=== PATIENT | male | born 1970 | race Caucasian/White ===

== ENCOUNTER 2024-09-16 11:56 | Observation (INO) | payer BC ==
--- NOTE | 2024-09-16 12:15 | ED ---
General Adult HPI - General Chief complaint: Abdominal Pain Stated complaint: Abd pain Time Seen by Provider: 09/16/24 12:04 Source: patient, RN notes reviewed Mode of arrival: ambulatory Limitations: no limitations - History of Present Illness Initial comments: This is a 53-year-old male with a history of type 2 diabetes and hypertension presenting to the [facility] chief complaint of sharp and stabbing mid-line abdominal pain that began this morning starting from his suprapubic region and up to his xiphoid. Pain states the pain is exacerbated on movement and on inspiration. He denies radiation of pain into the back, chest pain, shortness of breath, difficulty breathing. He denies nausea, vomiting, fevers, chills, diarrhea, constipation. Previous surgical abdominal history of of inguinal hernia repair. Patient states that he last had something to eat at about 1030 which was a piece of toast. States he has had small sips of water through the day. - Related Data Home Medications Medication Instructions Recorded Confirmed Aspirin EC [Ecotrin Low Dose] 81 mg PO DAILY 09/16/24 09/16/24 Dapagliflozin Propanediol [Farxiga] 10 mg PO DAILY 09/16/24 09/16/24 Pravastatin Sodium [Pravachol] 20 mg PO HS 09/16/24 09/16/24 Semaglutide [Ozempic] 1 mg SQ COVARRUBIAS 09/16/24 09/16/24 glipiZIDE [Glucotrol] 5 mg PO BID 09/16/24 09/16/24 lisinopriL [Prinivil] 20 mg PO DAILY 09/16/24 09/16/24 metFORMIN HCL 1,000 mg PO BID 09/16/24 09/16/24 sitaGLIPtin [Januvia] 100 mg PO DAILY 09/16/24 09/16/24 Allergies Allergy/AdvReac Type Severity Reaction Status Date / Time codeine Allergy Itching Verified 09/16/24 13:57 oxycodone [From Percocet] AdvReac Jittery Verified 09/16/24 13:57 Review of Systems ROS Statement: Those systems with pertinent positive or pertinent negative responses have been documented in the HPI. ROS Other: All systems not noted in ROS Statement are negative. Past Medical History Past Medical History: Diabetes Mellitus, Hypertension Past Surgical History: Orthopedic Surgery Past Psychological History: No Psychological Hx Reported Smoking Status: Never smoker Past Alcohol Use History: Occasional Past Drug Use History: None Reported General Exam Limitations: no limitations ENT exam: Present: normal exam, mucous membranes moist Neck exam: Present: normal inspection. Absent: tenderness, meningismus, lympha denopathy Respiratory exam: Present: normal lung sounds bilaterally. Absent: respiratory distress, wheezes, rales, rhonchi, stridor Cardiovascular Exam: Present: regular rate, normal rhythm, normal heart sounds. Absent: systolic murmur, diastolic murmur, rubs, gallop, clicks GI/Abdominal exam: Present: soft, tenderness (RLQ to palpation, + rovsings sign), normal bowel sounds. Absent: distended, guarding, rebound, rigid Back exam: Present: normal inspection Course Vital Signs 09/16/24 09/16/24 11:58 14:00 Temperature 98.1 F 99.1 F Pulse Rate 98 94 Respiratory 16 18 Rate Blood Pressure 132/88 137/88 O2 Sat by Pulse 99 97 Oximetry Medical Decision Making - Medical Decision Making Was pt. sent in by a medical professional or institution (, PA, GREY PERCHER, urgent care, hospital, or detention...) When possible be specific @ -No Did you speak to anyone other than the patient for history (EMS, parent, family, police, friend...)? What history was obtained from this source @ -No Did you review nursing and triage notes (agree or disagree)? Why? @ -I reviewed and agree with nursing and triage notes Were old charts reviewed (outside hosp., previous admission, EMS record, old EKG, old radiological studies, urgent care reports/EKG's, detention records)? Report findings @ -No old charts were reviewed Differential Diagnosis (chest pain, altered mental status, abdominal pain women, abdominal pain men, vaginal bleeding, weakness, fever, dyspnea, syncope, headache, dizziness, GI bleed, back pain, seizure, CVA, palpatations, mental health, musculoskeletal)? @ -Differential Abdominal Pain Men: Appendicitis, cholecystitis, diverticulosis, ischemic bowel, pancreatitis, hepatitis, UTI, gastroenteritis, AAA, incarcerated hernia, bowel obstruction, constipation, inflammatory bowel, hepatitis, peptic ulcer disease, splenic infarction, perforated viscus, testicular torsion, this is not meant to be an all-inclusive list EKG interpreted by me (3pts min.). @ -Completed at 1312 sinus tachycardia with a ventricular rate of 103, AR interval 157, QRS 93, QTc 362. X-rays interpreted by me (1pt min.). @ -None done CT interpreted by me (1pt min.). @ -CT of the abdomen pelvis with IV contrast remarkable for acute uncomplicated appendicitis U/S interpreted by me (1pt. min.). @ -None done What testing was considered but not performed or refused? (CT, X-rays, U/S, labs)? Why? @ -None What meds were considered but not given or refused? Why? @ -None Did you discuss the management of the patient with other professionals (professionals i.e. DrSay, PA, GREY PERCHER, lab, RT, psych nurse, clinical social work aide, camp nurse, teacher, promotions officer, child welfare caseworker)? Give summary @ -i spoke with commissioner of relocation services general surgeon, Dr. Street, who has accepted the patient for admission for acute appendicitis. Was smoking cessation discussed for >3mins.? @ -No Was critical care preformed (if so, how long)? @ -No Were there social determinants of health that impacted care today? How? (Homelessness, low income, unemployed, alcoholism, drug addiction, transportation, low edu. Level, literacy, decrease access to med. care, [facility], rehab)? @ -No Was there de-escalation of care discussed even if they declined (Discuss DNR or withdrawal of care, Hospice)? DNR status @ -No What co-morbidities impacted this encounter? (DM, HTN, Smoking, COPD, CAD, Cancer, CVA, ARF, Chemo, Hep., AIDS, mental health diagnosis, sleep apnea, morbid obesity)? @ -None Was patient admitted / discharged? Hospital course, mention meds given and route, prescriptions, significant lab abnormalities, going to OR and other pertinent info. @ - admitted. 53-year-old male with abdominal pain. On examination patient did have tenderness to the right lower quadrant and of the mid abdomen. He is provided with pain medications pending laboratory results and CT imaging. Patient's labs remarkable for hyperglycemia with a glucose of 214 and mildly elevated lactic acid at 2.3 and is provided with 1L fluid bolus. no leukocytosis, and patient is afebrile. Radiology confirms a acute uncomplicated appendicitis. Consult to general surgeon who is excepted patient for surgery. Case discussed with Dr. Pritchett. admitted to Dr. Street. Undiagnosed new problem with uncertain prognosis? @ -No Drug Therapy requiring intensive monitoring for toxicity (Heparin, Nitro, Insulin, Cardizem)? @ -No Were any procedures done? @ -No Diagnosis/symptom? @ -appendicitis Acute, or Chronic, or Acute on Chronic? @ -acute Uncomplicated (without systemic symptoms) or Complicated (systemic symptoms)? @ -complicated Side effects of treatment? @ -No Exacerbation, Progression, or Severe Exacerbation? @ -No Poses a threat to life or bodily function? How? (Chest pain, [place], PR, pneumonia, PE, COPD, DKA, ARF, appy, cholecystitis, CVA, Diverticulitis, Homicidal, Suicidal, threat to staff... and all critical care pts) @ -No - Lab Data Result diagrams: 09/16/24 12:50 09/16/24 12:49 Lab Results 09/16/24 09/16/24 09/16/24 Range/Units 12:49 12:49 12:50 WBC 10.4 (3.8-10.6) k/uL RBC 5.93 H (4.30-5.90) m/uL Hgb 17.2 (13.0-17.5) gm/dL Hct 50.6 (39.0-53.0) % MCV 85.4 (80.0-100.0) fL MCH 28.9 (25.0-35.0) pg MCHC 33.9 (31.0-37.0) g/dL RDW 12.7 (11.5-15.5) % Plt Count 171 (150-450) k/uL MPV 7.9 Neutrophils % 85 % Lymphocytes % 9 % Monocytes % 5 % Eosinophils % 1 % Basophils % 0 % Neutrophils # 8.8 H (1.3-7.7) k/uL Lymphocytes # 0.9 L (1.0-4.8) k/uL Monocytes # 0.5 (0-1.0) k/uL Eosinophils # 0.1 (0-0.7) k/uL Basophils # 0.0 (0-0.2) k/uL PT (10.0-12.5) sec INR (<1.2) APTT (22.0-30.0) sec Sodium 133 L (137-145) mmol/L Potassium 4.3 (3.5-5.1) mmol/L Chloride 101 (98-107) mmol/L Carbon Dioxide 21 L (22-30) mmol/L Anion Gap 11 mmol/L BUN 15 (9-20) mg/dL Creatinine 0.72 (0.66-1.25) mg/dL Est GFR (CKD-EPI)AfAm >90 (>60 ml/min/1.73 sqM) Est GFR (CKD-EPI)NonAf >90 (>60 ml/min/1.73 sqM) Glucose 214 H (74-99) mg/dL Plasma Lactic Acid Waylon 2.3 H* (0.7-2.0) mmol/L Calcium 10.3 H (8.4-10.2) mg/dL Total Bilirubin 1.6 H (0.2-1.3) mg/dL AST 25 (17-59) U/L ALT 34 (4-49) U/L Alkaline Phosphatase 122 (38-126) U/L Troponin I (0.000-0.034) ng/mL Total Protein 7.7 (6.3-8.2) g/dL Albumin 5.1 H (3.5-5.0) g/dL Amylase 56 (30-110) U/L Lipase 147 (23-300) U/L 09/16/24 09/16/24 Range/Units 12:50 12:50 WBC (3.8-10.6) k/uL RBC (4.30-5.90) m/uL Hgb (13.0-17.5) gm/dL Hct (39.0-53.0) % MCV (80.0-100.0) fL MCH (25.0-35.0) pg MCHC (31.0-37.0) g/dL RDW (11.5-15.5) % Plt Count (150-450) k/uL MPV Neutrophils % % Lymphocytes % % Monocytes % % Eosinophils % % Basophils % % Neutrophils # (1.3-7.7) k/uL Lymphocytes # (1.0-4.8) k/uL Monocytes # (0-1.0) k/uL Eosinophils # (0-0.7) k/uL Basophils # (0-0.2) k/uL PT 10.7 (10.0-12.5) sec INR 1.0 (<1.2) APTT 25.1 (22.0-30.0) sec Sodium (137-145) mmol/L Potassium (3.5-5.1) mmol/L Chloride (98-107) mmol/L Carbon Dioxide (22-30) mmol/L Anion Gap mmol/L BUN (9-20) mg/dL Creatinine (0.66-1.25) mg/dL Est GFR (CKD-EPI)AfAm (>60 ml/min/1.73 sqM) Est GFR (CKD-EPI)NonAf (>60 ml/min/1.73 sqM) Glucose (74-99) mg/dL Plasma Lactic Acid Waylon (0.7-2.0) mmol/L Calcium (8.4-10.2) mg/dL Total Bilirubin (0.2-1.3) mg/dL AST (17-59) U/L ALT (4-49) U/L Alkaline Phosphatase (38-126) U/L Troponin I <0.012 (0.000-0.034) ng/mL Total Protein (6.3-8.2) g/dL Albumin (3.5-5.0) g/dL Amylase (30-110) U/L Lipase (23-300) U/L Disposition Clinical Impression: Appendicitis Disposition: ADMITTED IP TO THIS [facility] Condition: Serious Decision to Admit Reason: Admit from EC Decision Date: 09/16/24 Decision Time: 14:07
[2024-09-16 12:57] LABS: Basophils % (A) 0 %; Eosinophils # (A) 0.1 k/uL (0-0.7); Eosinophils % (A) 1 %; HCT 50.6 % (39.0-53.0); HGB 17.2 gm/dL (13.0-17.5); Lymphocytes # (A) 0.9 k/uL (1.0-4.8); Lymphocytes % (A) 9 %; MCH 28.9 pg (25.0-35.0); MCHC 33.9 g/dL (31.0-37.0); MCV 85.4 fL (80.0-100.0); Mean Platelet Volume 7.9; Monocytes # (A) 0.5 k/uL (0-1.0); Monocytes % (A) 5 %; Neutrophils # (A) 8.8 k/uL (1.3-7.7); Neutrophils % (A) 85 %; Platelet Count 171 k/uL (150-450); RBC 5.93 m/uL (4.30-5.90); RDW 12.7 % (11.5-15.5); WBC 10.4 k/uL (3.8-10.6)
[2024-09-16] MEDS: HYDROmorphone 0.5 MG/0.5 ML SYRINGE IVP STA (13:01)
[2024-09-16 13:05] LABS: Partial Thromboplastin Time 25.1 sec (22.0-30.0); Prothrombin Time 10.7 sec (10.0-12.5)
[2024-09-16 13:14] LABS: ALT 34 U/L (4-49); AST 25 U/L (17-59); African American GFR (CKD) >90 (>60 ml/min/1.73 sqM); Albumin 5.1 g/dL (3.5-5.0); Alkaline Phosphatase 122 U/L (38-126); Amylase 56 U/L (30-110); Anion Gap 11 mmol/L; Blood Urea Nitrogen 15 mg/dL (9-20); Calcium 10.3 mg/dL (8.4-10.2); Carbon Dioxide 21 mmol/L (22-30); Chloride 101 mmol/L (98-107); Glucose 214 mg/dL (74-99); Lipase 147 U/L (23-300); Non-African American GFR(CKD) >90 (>60 ml/min/1.73 sqM); Potassium 4.3 mmol/L (3.5-5.1); Sodium 133 mmol/L (137-145); Total Bilirubin 1.6 mg/dL (0.2-1.3); Total Protein 7.7 g/dL (6.3-8.2)
--- NOTE | 2024-09-16 13:46 | CT ---
EXAMINATION TYPE: CT abdomen pelvis w con CT DLP: 1201.6 mGycm, Automated exposure control for dose reduction was used. DATE OF EXAM: 09/16/2024 1:36 PM COMPARISON: Non- CLINICAL INDICATION:Male, 53 years old with history of mid stabbing ab pain; ABD PAIN TECHNIQUE: Standard CT of the abdomen and pelvis following the administration of 100 cc of Isovue 3 00 IV contrast material. Coronal and sagittal reformats were performed. FINDINGS: LOWER CHEST: No significant findings ABDOMEN LIVER: Posterior right hepatic lobe subcentimeter hypodensity which is too small to accurately charac terized. GALLBLADDER AND BILE DUCTS: Unremarkable. PANCREAS: Unremarkable. SPLEEN: Unremarkable. ADRENAL GLANDS: Unremarkable. KIDNEYS AND URETERS: No evidence of hydronephrosis or renal calculus. The kidneys enhance symmetrical ly. Bilateral renal sinus cysts with left greater than right. Contrast is demonstrated within both co llecting systems on the delayed phase. PELVIS BLADDER: Unremarkable REPRODUCTIVE: Unremarkable. ABDOMEN & PELVIS STOMACH AND BOWEL: Stomach and duodenum are unremarkable. Dilated appendix measuring up to 1.1 cm wit h surrounding fat stranding and hyperdensity within its base. No surrounding fluid collections or gas . No evidence of bowel obstruction. PERITONEUM: No evidence of pneumoperitoneum or free fluid. VASCULATURE: No evidence of aortic aneurysm. MUSCULOSKELETAL: No acute osseous abnormalities. Sclerotic focus within the left acetabulum likely re presenting a benign bone island. Degenerative disc disease most pronounced at L5-S1 with disc space n arrowing, vacuum disc disease, endplate sclerosis, and osteophytosis. LYMPH NODES: No gross evidence for lymphadenopathy. SOFT TISSUE/ABDOMINAL WALL: Small fat filled right inguinal hernia. IMPRESSION: Acute uncomplicated appendicitis. Findings called to and discussed with PIPPA Umana at 1:43 PM on 09/16/2024. [facility], , 09/16/2024 1:43 PM
[2024-09-16] MEDS ORDERED: NALOXONE 0.4 MG/ML 1 ML VIAL IV PRN (14:06)
[2024-09-16 15:02] LABS: Glucose,Whole Blood 181 mg/dL (70-110)
--- NOTE | 2024-09-16 15:11 | P.GSHP ---
History of Present Illness H&P Date: 09/16/24 CHIEF COMPLAINT: Abdominal pain HISTORY OF PRESENT ILLNESS: This is a 53-year-old male with a known history of diabetes and hypertension. He presented to the hospital with complaints of abdominal pain. Patient reports that he has been having abdominal bloating. He is tender in the right lower quadrant as well as mid abdomen and into the upper abdomen. Patient reports that his symptoms started this morning. Pain is worse with with movement. Denies any nausea vomiting. Denies any fever chills or sweats. Prior abdominal surgical history includes inguinal hernia repair. Patient had a CT scan abdomen pelvis reporting findings of acute appendicitis. PAST MEDICAL HISTORY: See below PAST SURGICAL HISTORY: See below MEDICATIONS: See below ALLERGIES: See below SOCIAL HISTORY: No illicit drug use. REVIEW OF SYSTEMS: CONSTITUTIONAL: Denies fever or chills. HEENT: Denies blurred vision, vision changes, or eye pain. Denies hemoptysis CARDIOVASCULAR: Denies chest pain or pressure. RESPIRATORY: No shortness of breath. GASTROINTESTINAL: See HPI for pertinent findings HEMATOLOGIC: Denies bleeding disorders. GENITOURINARY: Denies any blood in urine or increased urinary frequency. SKIN: Denies pruitis. Denies rash. PHYSICAL EXAM: VITAL SIGNS: Reviewed GENERAL: Well-developed in no acute distress. HEENT: No sclera icterus. Extraocular movements grossly intact. Moist buccal mucosa. Head is atraumatic, normocephalic. No nasal drainage. ABDOMEN: Soft. Nondistended. Tenderness palpation to the right lower quadrant, mid abdomen and upper abdomen. More tender in the right lower quadrant. NEUROLOGIC: Alert and oriented. Cranial nerves II through XII grossly intact. LABORATORY DATA: WBC 10.4 Hgb 17.2 platelets 171 INR 1.0 Sodium 133 potassium is 4.3 creatinine 0.72 glucose 181 lactic acid 2.3 Total bili 1.6 LFTs normal lipase 147 IMAGING: CT scan abdomen pelvis reports acute uncomplicated appendicitis ASSESSMENT: 1. Acute appendicitis PLAN: -Patient scheduled for Laparoscopic Appendectomy today with Dr. Street -Keep patient n.p.o. -Start Rocephin and Flagyl -Continue IV fluids -Continue pain management Physician Steam Table Worker note has been reviewed by physician. Signing provider agrees with the documented findings, assessment, and plan of care. Past Medical History Past Medical History: Diabetes Mellitus, Hypertension Past Surgical History: Orthopedic Surgery Past Psychological History: No Psychological Hx Reported Smoking Status: Never smoker Past Alcohol Use History: Occasional Past Drug Use History: None Reported Medications and Allergies Home Medications Medication Instructions Recorded Confirmed Type Aspirin EC [Ecotrin Low Dose] 81 mg PO DAILY 09/16/24 09/16/24 History Dapagliflozin Propanediol [Farxiga] 10 mg PO DAILY 09/16/24 09/16/24 History Pravastatin Sodium [Pravachol] 20 mg PO HS 09/16/24 09/16/24 History Semaglutide [Ozempic] 1 mg SQ COVARRUBIAS 09/16/24 09/16/24 History glipiZIDE [Glucotrol] 5 mg PO BID 09/16/24 09/16/24 History lisinopriL [Prinivil] 20 mg PO DAILY 09/16/24 09/16/24 History metFORMIN HCL 1,000 mg PO BID 09/16/24 09/16/24 History sitaGLIPtin [Januvia] 100 mg PO DAILY 09/16/24 09/16/24 History Allergies Allergy/AdvReac Type Severity Reaction Status Date / Time oxycodone [From Percocet] AdvReac Jittery Verified 09/16/24 15:49 prednisone AdvReac Unknown Verified 09/16/24 16:12 Surgical - Exam Osteopathic Statement: *. No significant issues noted on an osteopathic structural exam other than those noted in the History and Physical/Consult. Vital Signs Temp Pulse Resp BP Pulse Ox 98.1 F 98 16 132/88 99 09/16/24 11:58 09/16/24 11:58 09/16/24 11:58 09/16/24 11:58 09/16/24 11:58 Results - Labs 09/16/24 12:50 09/16/24 12:49 Abnormal Lab Results - Last 24 Hours (Table) 09/16/24 09/16/24 09/16/24 Range/Units 12:49 12:49 12:50 RBC 5.93 H (4.30-5.90) m/uL Neutrophils # 8.8 H (1.3-7.7) k/uL Lymphocytes # 0.9 L (1.0-4.8) k/uL Sodium 133 L (137-145) mmol/L Carbon Dioxide 21 L (22-30) mmol/L Glucose 214 H (74-99) mg/dL Plasma Lactic Acid Waylon 2.3 H* (0.7-2.0) mmol/L Calcium 10.3 H (8.4-10.2) mg/dL Total Bilirubin 1.6 H (0.2-1.3) mg/dL Albumin 5.1 H (3.5-5.0) g/dL Diabetes panel 09/16/24 Range/Units 12:49 Sodium 133 L (137-145) mmol/L Potassium 4.3 (3.5-5.1) mmol/L Chloride 101 (98-107) mmol/L Carbon Dioxide 21 L (22-30) mmol/L BUN 15 (9-20) mg/dL Creatinine 0.72 (0.66-1.25) mg/dL Glucose 214 H (74-99) mg/dL Calcium 10.3 H (8.4-10.2) mg/dL AST 25 (17-59) U/L ALT 34 (4-49) U/L Alkaline Phosphatase 122 (38-126) U/L Total Protein 7.7 (6.3-8.2) g/dL Albumin 5.1 H (3.5-5.0) g/dL Calcium panel 09/16/24 Range/Units 12:49 Calcium 10.3 H (8.4-10.2) mg/dL Albumin 5.1 H (3.5-5.0) g/dL Pituitary panel 09/16/24 Range/Units 12:49 Sodium 133 L (137-145) mmol/L Potassium 4.3 (3.5-5.1) mmol/L Chloride 101 (98-107) mmol/L Carbon Dioxide 21 L (22-30) mmol/L BUN 15 (9-20) mg/dL Creatinine 0.72 (0.66-1.25) mg/dL Glucose 214 H (74-99) mg/dL Calcium 10.3 H (8.4-10.2) mg/dL Adrenal panel 09/16/24 Range/Units 12:49 Sodium 133 L (137-145) mmol/L Potassium 4.3 (3.5-5.1) mmol/L Chloride 101 (98-107) mmol/L Carbon Dioxide 21 L (22-30) mmol/L BUN 15 (9-20) mg/dL Creatinine 0.72 (0.66-1.25) mg/dL Glucose 214 H (74-99) mg/dL Calcium 10.3 H (8.4-10.2) mg/dL Total Bilirubin 1.6 H (0.2-1.3) mg/dL AST 25 (17-59) U/L ALT 34 (4-49) U/L Alkaline Phosphatase 122 (38-126) U/L Total Protein 7.7 (6.3-8.2) g/dL Albumin 5.1 H (3.5-5.0) g/dL Assessment and Plan Assessment: 53-year-old male with appendicitis Continue antibiotics OR today Possible discharge tomorrow Time with Patient: Greater than 30
[2024-09-16 16:04] LABS: Glucose,Whole Blood 166 mg/dL (70-110)
[2024-09-16] MEDS: ONDANSETRON 4 MG/2 ML VIAL IVP PRN (16:05)
[2024-09-16] MEDS: FAMOTIDINE 20 MG/2 ML VIAL IV STA (16:06)
[2024-09-16] MEDS: DEXAMETHASONE SOD PHOSPHATE 4 MG/ML 1 ML VIAL IVP PRN (16:10)
[2024-09-16] MEDS: IV FLUID CONTINUATION 1,000 ML IV ONE (16:16)
[2024-09-16] MEDS ORDERED: MIDAZOLAM 2 MG/2 ML VIAL ONE (16:49)
[2024-09-16] MEDS ORDERED: fentaNYL (PF) 50 MCG/ML 2 ML AMP ONE (16:49)
[2024-09-16] MEDS ORDERED: SUCCINYLCHOLINE CHLORIDE 200 MG/10 ML VIAL IV ONE (16:49)
[2024-09-16] MEDS ORDERED: HEPARIN SODIUM,PORCINE 5,000 UNIT/ML 1 ML VIAL ONE (16:49)
[2024-09-16] MEDS ORDERED: GLYCOPYRROLATE 0.2 MG/ML 2 ML VIAL ONE (16:49)
[2024-09-16] MEDS ORDERED: ROCURONIUM 10 MG/ML (5 ML VIAL) IV ONE (16:49)
[2024-09-16] MEDS ORDERED: HYDROmorphone (PF) 1 MG/ML ONE (16:49)
[2024-09-16] MEDS ORDERED: LIDOCAINE 1% INJ 10MG/ML (20 ML MDV) ONE (16:49)
[2024-09-16] MEDS ORDERED: PROPOFOL 10 MG/ML 20 ML VIAL IV ONE (16:49)
[2024-09-16] MEDS ORDERED: NEOSTIGMINE 1 MG/ML 10 ML VIAL ONE (16:49)
[2024-09-16] MEDS: metroNIDAZOLE-NS PMX 500 MG in SALINE 1 100ML.BAG IVPB SCH (17:15)
[2024-09-16] MEDS: LIDOCAINE 1%-EPI 1:100,000 20 ML VIAL SQ ONE ×2 (17:17→18:20)
[2024-09-16] MEDS: LACTATED RINGERS 1,000 ML IV ONE ×2 (17:42→17:44)
[2024-09-16 18:42] LABS: Glucose,Whole Blood 213 mg/dL (70-110)
[2024-09-16] MEDS: INSULIN ASPART (NovoLOG) 100 UNIT/ML VIAL SQ ONE (18:54)
--- NOTE | 2024-09-16 19:21 | P.OP ---
Date of Procedure: 09/16/24 Preoperative Diagnosis: appendicitis Postoperative Diagnosis: appendicitis Procedure(s) Performed: laparoscopic appendectomy Anesthesia: STEFFANY Surgeon: Jw Street Pathology: other (Appendix) Condition: stable Disposition: PACU Indications for Procedure: appendicitis Operative Findings: inflamed appendix curled in inflamed fat Description of Procedure: patient is brought to the operating suite where he was cleaned and draped in sterile fashion and a timeout was performed. Everyone agreed with the information recited.a #15 blade was then used to make an incision in the left upper quadrant and a 5 mm Visiport was used to gain access. [address] and the abdomen 1 in the periumbilical area and one in the infraumbilical area. Next the patient was placed in Trendelenburg in right side up. We then move the small bowel out of the way exposing the cecum and inflamed appendix. Next the appendix was picked up and was dissected freely from the retroperitoneum. This was very difficult as the appendix was plastered to the wall as well. Once we were able to free it up we dissected down to the base and using a Endo JACINTO 60 propyl staple load to resect the appendix. The base was inspected and hemostatic, was performed. Just for good measure the vistaseal was then used over the staple line. The abdomen was irrigated. Appendix was then removed out of the patient's abdomen in an Endo Catch bag. The periumbilical skin was closed using 0 Vicryl suture in a [id number] fashion. The surgical incisions were closed using 4-0 Vicryl suture in an interrupted fashion. The patient was then transported to PACU in stable condition.
[2024-09-16] MEDS: SODIUM CHLORIDE 0.9% 1,000 ML IV SCH (19:34)
[2024-09-16] MEDS: METOPROLOL TARTRATE 5 MG/5 ML VIAL IVP STA (19:34)
[2024-09-16 20:51] LABS: Glucose,Whole Blood 196 mg/dL (70-110)
[2024-09-16] MEDS: SODIUM CHLORIDE 0.9% 1,000 ML IV STA (21:18)
[2024-09-16] MEDS: DAPAGLIFLOZIN PROPANEDIOL 10 MG TABLET PO SCH (21:32)
[2024-09-16] MEDS: HYDROmorphone 0.5 MG/0.5 ML SYRINGE IVP PRN (21:32)
[2024-09-16] MEDS: lisinopriL 20 MG TAB PO SCH (21:32)
[2024-09-17 06:35] LABS: Glucose,Whole Blood 122 mg/dL (70-110)
[2024-09-17 07:16] LABS: Basophils % (A) 0 %; Eosinophils % (A) 0 %; HCT 45.7 % (39.0-53.0); HGB 15.3 gm/dL (13.0-17.5); Lymphocytes # (A) 1.2 k/uL (1.0-4.8); Lymphocytes % (A) 12 %; MCHC 33.5 g/dL (31.0-37.0); MCV 86.6 fL (80.0-100.0); Mean Platelet Volume 7.8; Monocytes # (A) 0.7 k/uL (0-1.0); Monocytes % (A) 7 %; Neutrophils # (A) 7.9 k/uL (1.3-7.7); Neutrophils % (A) 80 %; Platelet Count 173 k/uL (150-450); RBC 5.28 m/uL (4.30-5.90); WBC 9.9 k/uL (3.8-10.6)
[2024-09-17 07:28] LABS: ALT 24 U/L (4-49); AST 19 U/L (17-59); African American GFR (CKD) >90 (>60 ml/min/1.73 sqM); Alkaline Phosphatase 80 U/L (38-126); Anion Gap 8 mmol/L; Blood Urea Nitrogen 13 mg/dL (9-20); Calcium 9.2 mg/dL (8.4-10.2); Carbon Dioxide 27 mmol/L (22-30); Chloride 101 mmol/L (98-107); Glucose 118 mg/dL (74-99); Non-African American GFR(CKD) >90 (>60 ml/min/1.73 sqM); Potassium 4.3 mmol/L (3.5-5.1); Sodium 136 mmol/L (137-145); Total Bilirubin 1.5 mg/dL (0.2-1.3); Total Protein 6.1 g/dL (6.3-8.2)
[2024-09-17 08:44] VITALS: BP 123/79; PULSE 96; RESP 17; TEMP 98.1
[2024-09-17] MEDS ORDERED: ACETAMINOPHEN TAB 325 MG TAB PO PRN (09:33)
[2024-09-17] MEDS: HYDROcodone/APAP 5-325MG 1 EACH TAB PO PRN (09:59)
--- NOTE | 2024-09-17 13:35 | P.DS ---
Providers Date of admission: 09/16/24 14:04 Expected date of discharge: 09/17/24 Attending physician: Jw Street DO Primary care physician: Physician Nonstaff Hospital Course: Discharge diagnosis 1. Acute appendicitis Hospital course This is a 53-year-old male who presented with right lower quadrant abdominal pain. CT scan findings positive for acute appendicitis. He is status post laparoscopic appendectomy. Patient tolerated surgery well. His pain is controlled. He is tolerating diet. He has been up and ambulating. He is afebrile. Patient had some mild ecchymosis around the umbilicus on exam. He is stable for discharge. Please refer to chart for any further details. Physician Joint Terminal Attack Controller note has been reviewed by physician. Signing provider agrees with the documented findings, assessment, and plan of care. Patient Condition at Discharge: Stable Plan - Discharge Summary New Discharge Prescriptions: New Acetaminophen Tab [Tylenol Tab] 650 mg PO Q4H PRN #30 tablet PRN Reason: Pain HYDROcodone/APAP 5-325MG [[place] 5-325] 1 tab PO Q6HR PRN 3 Days #12 tab PRN Reason: Pain Continue Semaglutide [Ozempic] 1 mg SQ COVARRUBIAS Pravastatin Sodium [Pravachol] 20 mg PO HS glipiZIDE [Glucotrol] 5 mg PO BID Dapagliflozin Propanediol [Farxiga] 10 mg PO DAILY metFORMIN HCL 1,000 mg PO BID sitaGLIPtin [Januvia] 100 mg PO DAILY lisinopriL [Prinivil] 20 mg PO DAILY Discontinued Aspirin EC [Ecotrin Low Dose] 81 mg PO DAILY Discharge Medication List Dapagliflozin Propanediol [Farxiga] 10 mg PO DAILY 09/16/24 [History] Pravastatin Sodium [Pravachol] 20 mg PO HS 09/16/24 [History] Semaglutide [Ozempic] 1 mg SQ COVARRUBIAS 09/16/24 [History] glipiZIDE [Glucotrol] 5 mg PO BID 09/16/24 [History] lisinopriL [Prinivil] 20 mg PO DAILY 09/16/24 [History] metFORMIN HCL 1,000 mg PO BID 09/16/24 [History] sitaGLIPtin [Januvia] 100 mg PO DAILY 09/16/24 [History] Acetaminophen Tab [Tylenol Tab] 650 mg PO Q4H PRN #30 tablet 09/17/24 [Rx] HYDROcodone/APAP 5-325MG [[place] 5-325] 1 tab PO Q6HR PRN 3 Days #12 tab 09/17/24 [Rx] Follow up Appointment(s)/Referral(s): Nonstaff,Physician [Primary Care Provider] - 1-[address] DO [Doctor of Osteopathic Medicine] - 1 Week Activity/Diet/Wound Care/Special Instructions: No driving while taking [place]. Ok to resume driving on Sunday if not taking [place]. No lifting over 10 pounds You may shower. No soaking or tub baths for 2 weeks Very light activity until you are reevaluated at your follow up appointment with your surgeon Apply ice packs to incisions today Hold on taking Aspirin until seen by surgeon in office Discharge Disposition: HOME SELF-CARE
== END 2024-09-17 11:05 | disposition home or self-care (01) ==
LOC: EDSEX 11:56 → EC 11:56 → 4SSUR 14:04 → 1SOBS 14:49
PROVIDERS: ADMIT Surgery; ATTEND Surgery
DX: K35.80 Unspecified acute appendicitis (principal); E11.9 Type 2 diabetes mellitus without complications; I10 Essential (primary) hypertension; Z79.82 Long term (current) use of aspirin; Z79.84 Long term (current) use of oral hypoglycemic drugs; Z79.899 Other long term (current) drug therapy; Z88.5 Allergy status to narcotic agent
CPT/HCPCS: 44970; 96365; 96366; 96367; 96376 ×2; 96375; 99285; 36415; 93005; 88304; 80053 ×2; 82150; 83605; 83690; 84484; 85025 ×2; 85610; 85730; 74177; G0378 ×3; C1762; J2250; J0330; J1644; J1100; J2710; J2405; J2003; J0696 ×2; J3010; J3490; J1171 ×3; J2704; Q9967; J1836 ×2; J1596